=== PATIENT | female | born 1950 | race Caucasian/White ===

== ENCOUNTER 2017-10-07 12:32 | Emergency (ER) | payer MEDICARE ==
[~2017-10-07] VITALS: Ht 172.7 cm; Wt 81.8 kg
[2017-10-07 12:41] VITALS: BP 218/90; PULSE 132; RESP 20; TEMP 99; O2SAT 96
[2017-10-07] MEDS ORDERED: ONDANSETRON HCL 4 MG/2 ML VIAL IV PUSH ONE (13:15)
[2017-10-07] MEDS ORDERED: MORPHINE SULFATE 4 MG/ML INJ IV PUSH ONE (13:15)
[2017-10-07] MEDS ORDERED: LIDOCAINE HCL 1% 50 ML VIAL INFIL ONE (13:15)
[2017-10-07] MEDS ORDERED: TETANUS/DIPHTHERIA TOXOID ADULT 0.5 ML VIAL IM ONE (13:15)
[2017-10-07] MEDS ORDERED: LIDOCAINE HCL 1% PF 10 ML VIAL INFIL ONE (14:00)
[2017-10-07] MEDS ORDERED: oxyCODONE/ACETAMINOPHEN 5 MG/325 MG TAB PO ONE (15:00)
[2017-10-07] MEDS ORDERED: AMOXICILLIN/CLAVULANATE K 875 MG TAB PO ONE (15:00)
[2017-10-07] MEDS ORDERED: TRAM50 PO (15:05)
[2017-10-07] MEDS ORDERED: BACI500O9 TOPICAL (15:05)
[2017-10-07] MEDS ORDERED: AUGM875T3 PO (15:05)
--- NOTE | 2017-10-07 15:05 | PD ---
HPI Chief Complaint: Bite or Sting Time Seen by Provider: 12:55 Travel History International Travel<30 days: No Contact w/Intl Traveler<30days: No Traveled to known affect area: No History of Present Illness HPI This is a 66-year-old female here with multiple lacerations and puncture wounds caused by dogbite. Injury occurred prior to arrival. The dog is in by her neighbor and up-to-date on immunizations. 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 She denies paresthesia or weakness of the extremities. She has pain localized to the bites. Bleeding well controlled. No aggravating or alleviating factors. Symptoms severity moderate. PFSH Past Medical History Medical History: Denies Significant Hx ?: Not Social History Tobacco Use: No Allergies-Medications (Allergen,Severity, Reaction): Uncoded Allergies: dermabond (Allergy, Intermediate, rash, 10/07/17) Reported Meds & Prescriptions Reported Meds & Active Scripts Active Bacitracin Topical 500 Unit/Gm Oint 1 Applic TOPICAL DAILY Ultram (Tramadol HCl) 50 Mg Tab 50 Mg PO Q6H PRN Augmentin (Amoxicillin-Clavulanate) 875-125 Mg Tab 1 Tab PO BID Review of Systems Except as stated in HPI: all other systems reviewed are Neg Physical Exam Narrative GENERAL: Alert and well-appearing 66-year-old female. SKIN: Warm and dry. Wound #1 left forearm measuring 12 cm with gaping wound edges. No underlying tendon or vascular injury. Wound #2 left thumb measuring 1 cm volar aspect with well approximated wound edges. No underlying tendon or vascular injury. Patient retains full range of motion against resistance and normal sensation in that digit. Wound #3 right index finger 2 puncture wounds distal aspect. Patient retains full range of motion against resistance and normal sensation. Brisk cap refill. No bony deformity. Wound #4 puncture wound to the left lateral lower extremity. HEAD: Atraumatic. Normocephalic. EYES: Pupils equal and round. No scleral icterus. No injection or drainage. ENT: No nasal bleeding or discharge. Mucous membranes pink and moist. NECK: Trachea midline. No JVD. CARDIOVASCULAR: Regular rate and rhythm. RESPIRATORY: No accessory muscle use. Clear to auscultation. Breath sounds equal bilaterally. GASTROINTESTINAL: Abdomen soft, non-tender, nondistended. Hepatic and splenic margins not palpable. MUSCULOSKELETAL: Extremities without clubbing, cyanosis, or edema. No obvious deformities. Extremities are neurovascularly intact. 2+ distal pulses. Brisk cap Refill. NEUROLOGICAL: Awake and alert. No obvious cranial nerve deficits. Motor grossly within normal limits. Five out of 5 muscle strength in the arms and legs. Normal speech. PSYCHIATRIC: Appropriate mood and affect; insight and judgment normal. Data Data Last Documented VS Vital Signs Date Time Temp Pulse Resp B/P (MAP) Pulse Ox O2 Delivery O2 Flow Rate FiO2 10/07/17 12:41 99.0 132 20 218/90 (132) 96 Orders Orders Iv Access Insert/Monitor (10/07/17 13:14) Wound Care (10/07/17 13:14) Lidocaine 1% Inj (50 Ml) (Xylocaine 1% I (10/07/17 13:15) Tetanus/Diphtheria Tox Adult (Tetanus/Di (10/07/17 13:15) Morphine Inj (Morphine Inj) (10/07/17 13:15) Ondansetron Inj (Zofran Inj) (10/07/17 13:15) Lidocaine Pf 1% Inj (Xylocaine-Mpf 1% In (10/07/17 14:00) Amoxicil-Clavulanate (Augmentin) (10/07/17 15:00) Oxycodone-Acetamin 5-325 Mg (Percocet (10/07/17 15:00) Ed Discharge Order (10/07/17 15:42) MDM Medical Decision Making Medical Screen Exam Complete: Yes Emergency Medical Condition: Yes Differential Diagnosis Dog bite, laceration, puncture wound Narrative Course To 66-year-old female here with dog bite to bilateral upper and lower extremities. Patient sustained a large gaping 12 cm laceration to left forearm. The extremity is neurovascularly intact. Wound edges were loosely approximated, she also sustained multiple puncture wounds to the left thumb, right index finger and left lower extremity. All extremities are neurovascularly intact. All wounds extensively irrigated. Sterile dressings were applied. Tetanus immunization was updated. Patient was instructed on how to provide wound care for the wounds and Need for close follow-up. Patient verbalizes understanding and agrees to plan. Vital signs normalized patient's heart rate reduced to 98, blood pressure 179/84. She is stable and ready for discharge Procedures Procedure Narrative LACERATION LOCATION: Left forearm LENGTH: 12 centimeter NUMBER OF STITCHES/RICK: 14 REPAIR: The area of the laceration was prepped with Betadine and sterilely draped. The laceration was infiltrated with 1% lidocaine. The wound was copiously irrigated and explored without evidence of foreign body, tendon injury or neurovascular injury. The wound was closed using [3-0 Ethilon]. This was a single loosely layer repair. A sterile dressing was applied. The patient was advised to keep the dressing clean and dry. Patient tolerated the procedure well. Diagnosis Primary Impression: Bite from dog Qualified Codes: W54.0XXA - Bitten by dog, initial encounter Additional Impressions: Laceration of left upper arm Qualified Codes: S41.112A - Laceration without foreign body of left upper arm , initial encounter Puncture wound Referrals: Primary Care Physician Additional Instructions: Cleansed the wounds daily with soap and water. Apply a thin layer of antibiotic ointment and cover with a dressing. Antibiotics as prescribed. Avoid heavy lifting or strenuous activity. Return if you develop any signs of infection which include fever, increased pain , redness or drainage from the site Scripts Bacitracin Topical (Bacitracin Topical) 500 Unit/Gm Oint 1 APPLIC TOPICAL DAILY for Infection, #30 GM 0 Refills Prov: Brigette Mera 10/07/17 Tramadol (Ultram) 50 Mg Tab 50 MG PO Q6H Y for PAIN, #12 TAB 0 Refills Prov: Brigette Mera 10/07/17 Amoxicillin-Clavulanate (Augmentin) 875-125 Mg Tab 1 TAB PO BID for Infection, #20 TAB 0 Refills Prov: Brigette Mera 10/07/17 Disposition: 01 DISCHARGE HOME Condition: Stable Brigette Mera Oct 07, 2017 15:05
== END 2017-10-07 16:02 | disposition home or self-care (01) ==
LOC: PHEFT 12:32
DX: S51.852A Open bite of left forearm, initial encounter (principal); S61.250A Open bite of right index finger without damage to nail, initial encounter; S81.852A Open bite, left lower leg, initial encounter; W54.0XXA Bitten by dog, initial encounter; Y92.009 Unspecified place in unspecified non-institutional (private) residence as the place of occurrence of the external cause; Z23 Encounter for immunization
CPT/HCPCS: 12004; 90471; 90714; 96374; 96375; 99284; J2270; J2405